=== PATIENT | female | born 1995 | race Caucasian/White ===

== ENCOUNTER 2018-06-06 20:05 | Outpatient (CLI) | payer BC, OTHER ==
[~2018-06-06] VITALS: Ht 175.3 cm; Wt 79.5 kg
--- NOTE | 2018-06-06 20:10 | NUR ---
PT TO UNIT AMBULATORY WITH COMPLAINTS OF CONTRACTIONS. PT TO ROOM, CHANGED INTO GOWN. EFM APPLIED, VS OBTAINED, SVE PERFORMED.
[2018-06-06 20:27] VITALS: BP 118/71; PULSE 125; TEMP 98.4
[2018-06-06] MEDS ORDERED: PRENATAL PO (20:35)
[2018-06-06] MEDS ORDERED: PROBIOTIC FORMU1 CAP PO (20:36)
[2018-06-06] MEDS ORDERED: NATURAL IRON65 MG PO (20:38)
[2018-06-06 20:45] VITALS: BP 118/71; PULSE 125; TEMP 98.4
[2018-06-06 21:15] VITALS: BP 107/62; PULSE 100
[2018-06-06 21:33] VITALS: BP 114/62; PULSE 96
--- NOTE | 2018-06-06 21:33 | NUR ---
PT MAY DC HOME PER DR. SCHREIBER. MONITORING DC'D AT THIS TIME. PT CHANGING INTO STREET [employer]OTHES WHILE DISCHARGE PAPERWORK PREPARED.
== END 2018-06-06 21:50 | disposition home or self-care (01) ==
LOC: LDRO 20:05 → LDR 20:44 → LDRO 21:50
DX: O62.9 Abnormality of forces of labor, unspecified (principal); Z3A.37 37 weeks gestation of pregnancy
CPT/HCPCS: OP

== ENCOUNTER 2018-06-13 17:17 | Outpatient (CLI) | payer BC, OTHER ==
[~2018-06-13] VITALS: Ht 175.3 cm; Wt 79.5 kg
[~2018-06-13 17:17] MED LIST: NATURAL IRON65 MG PO; PRENATAL PO; PROBIOTIC FORMU1 CAP PO
[2018-06-13 17:27] VITALS: BP 116/83; PULSE 66; TEMP 97.7
--- NOTE | 2018-06-13 17:46 | NUR ---
Patient ambulatory to unit accompanied by spouse. Patient states that since around 1100 today she has been having regular painful contractions about every 5 minutes. Patient denies any leaking of fluid or vaginal bleeding and states baby has been active. Patient reports that she is attempting a with this delivery as last was for intolerance but has a successful vaginal delivery with her first delivery. Patient denies any complications with this . Transfer from [facility] around 32 weeks so she can . FHR and contraction monitors placed and explained. VS stable. SVE /-3. Contractions palpate moderate to firm. Will contact Dr. Jones for further orders.
[2018-06-13 19:00] VITALS: BP 115/79; PULSE 54
--- NOTE | 2018-06-13 19:00 | NUR ---
1839- SVE /-3. Unchanged from SVE upon admission. 1844- updated. Ok to discharge home. 1854- Discharge instructions explained to patient and . Encouraged patient to rest and increase fluid intake. Call anytime with questions and concerns. 1904- Patient ambulatory off unit with .
== END 2018-06-13 19:05 | disposition home or self-care (01) ==
LOC: LDRO 17:17
DX: O62.9 Abnormality of forces of labor, unspecified (principal); Z3A.38 38 weeks gestation of pregnancy

== ENCOUNTER 2018-06-17 19:08 | Outpatient (CLI) | payer BC, OTHER ==
[~2018-06-17] VITALS: Ht 175.3 cm; Wt 79.1 kg
--- NOTE | 2018-06-17 19:20 | NUR ---
Pt arrived on the unit ambulatory escorted by and with complaits of contractions "all day", pt denies any leaking of fluid but some "spotting" after appointment with Dr. Jones on 06/16 when membranes were stripped per pt's report. Pt also reports normal movement. EFM and toco monitors placed. Vital signs WNL. SVE 2-3/80/-2. Spoke with Dr. Harding for an update on pt's arrival, FHR tracing and SVE reviewed. Orders for labor assessment received.
[2018-06-17 20:20] VITALS: BP 122/74; PULSE 73; TEMP 97.5
--- NOTE | 2018-06-17 20:40 | NUR ---
Spoke with Dr. Harding for an update on pt's status with repeat SVE and no change 2/-2. Orders for discharge home received. Information reviewed with pt and at the bedside. Both verbalized an agreement and report no questions or concerns at this time.
== END 2018-06-17 21:00 | disposition home or self-care (01) ==
LOC: LDRO 19:08
DX: O62.9 Abnormality of forces of labor, unspecified (principal); Z3A.39 39 weeks gestation of pregnancy

== ENCOUNTER 2018-06-18 00:59 | Inpatient (IN) | payer BC, OTHER ==
[~2018-06-18] VITALS: Ht 175.3 cm; Wt 79.1 kg
[2018-06-18] VITALS (38 sets, daily range): BP systolic 95–138; BP diastolic 7–79; PULSE 55–125; TEMP 97.7–99.1
--- NOTE | 2018-06-18 01:05 | NUR ---
at 39 weeks and 4 days arrives to unit ambulatory with complaint of contractions every 4-5 minutes. Pt was seen a few hours ago and was discharged dilated 2-3. Pt oriented to room, bed in low and locked position, and call light within reach. Pt changed into clean gown. EFM and toco explained and applied. Pt reports good movement and denies LOF. Pt reports not problems this . Has had a VAVD and a C/S for intolerance of labor, pt desires . Plan of care reviewed and patient and spouse. Admission assessment started. SVE /-2
--- NOTE | 2018-06-18 01:14 | NUR ---
0114 - Pt requesting epidural. Milton Isbell CRNA notified 0150 - ANN Penn at bedside. Pt repositioned to sitting on edge of bed. Epidural procedure, risks, and benefits reviewed with patient, pt verbalized understanding. 0159 - Single shot by Carlos Isbell CRNA, pt denies any adverse reactions. 0203 - Pt repositioned in bed to wedge left. Epidural pump set up by ANN Penn.
--- NOTE | 2018-06-18 01:31 | NUR ---
IV started in right forearm with 1 attempt. Labs obtained off of IV start. Lactated ringers bolus infusing to gravity.
[2018-06-18 01:48] LABS: BASO % 0.1 % (0.0-2.0); EOS # 0.1 (0.0-0.7); EOS % 0.4 % (0-4.0); GRAN # 11.2 (1.4-6.5); GRAN % 77.8 % (42.2-75.2); HEMATOCRIT 37.3 % (37.0-47.0); HEMOGLOBIN 12.1 g/dl (12.5-16.0); LYMPH # 2.2 (1.2-3.4); LYMPH % 15.4 % (20.0-51.0); MEAN CELL VOLUME 88 fl (80.0-100.0); MEAN CORPUSCULAR HEMOGLOBIN 28 pg (27.0-31.0); MEAN CORPUSCULAR HGB CONC 32 g/dl (33.0-37.0); MEAN PLATELET VOLUME 11.5 fl (7.4-10.4); MONO # 0.8 (0.1-0.6); MONO % 5.5 % (1.7-9.3); PLATELET COUNT 251 K/mm3 (130-400); RED BLOOD COUNT 4.26 M/mm3 (4.10-5.30); REDCELL DISTRIBUTION WIDTH-CV 13.5 % (11.5-14.5)
--- NOTE | 2018-06-18 08:15 | NUR ---
0800- SVE by Dr Jones, complete/+3. Room and Pt prepared for delivery. Rony, nursery RN called to bedside. 08- Pt begins pushing with UCs. 0815- of viable female infant. Infant dried and stimulated by . Placed on mother's abd, tended to by nursery RN. Cord clamped and cut. Cord blood obtained and collected. 817- Spontaneous delivery of placenta, Pitocin started at 333ml/hr. Fundus massaged to firm by . Repair completed. Pericare completed. Ice pack and clean chux under Pt. Pt tolerated well, resting comfortably with skin-2-skin.
--- NOTE | 2018-06-18 11:00 | NUR ---
1100- Pt ambulates to bathroom independently with RN by side. Voids without difficulty. Pericare completed and explained. Peripad and underwear on. Clean gown on. Pt ambulates to PP room independently with RN and family. Oriented to room. Education packet given. Call light within reach.
[2018-06-19 07:40] VITALS: BP 111/73; PULSE 69; TEMP 97.5
[2018-06-19] MEDS ORDERED: PERCOCET 325 MG1 TA2 PO (08:39)
[2018-06-19] MEDS ORDERED: MOTRIN 800800 MG/TAB PO (08:39)
--- NOTE | 2018-06-19 09:13 | NUR ---
Initial visit; Parents thanked [employer] for offering congratulations and God's blessings for the of their daughter. night assistant thanked them for choosing [facility].
== END 2018-06-19 14:25 | disposition home or self-care (01) | DRG 807 ==
LOC: LDRO 00:59 → OB 01:19 → LDR 01:19 → OB 11:15
PROVIDERS: Obstetrics & Gynecology; ADMIT Obstetrics & Gynecology
PROC: 10E0XZZ Delivery of Products of Conception, External Approach (ICD-10-PCS; principal; 2018-06-18)
PROC: 0W8NXZZ Division of Female Perineum, External Approach (ICD-10-PCS; 2018-06-18)
DX: O34.211 Maternal care for low transverse scar from previous cesarean delivery (principal); Z37.0 Single live birth; N85.8 Other specified noninflammatory disorders of uterus; Z3A.39 39 weeks gestation of pregnancy; O69.2XX0 Labor and delivery complicated by other cord entanglement, with compression, not applicable or unspecified; O99.02 Anemia complicating childbirth; Z88.0 Allergy status to penicillin
CPT/HCPCS: J2590; J2795; J7120

== ENCOUNTER 2020-09-10 23:38 | Outpatient (CLI) | payer BC, OTHER ==
[~2020-09-10] VITALS: Ht 170.2 cm; Wt 90.0 kg
[~2020-09-10 23:38] MED LIST changes: +MOTRIN 800800 MG/TAB PO; +PERCOCET 325 MG1 TA2 PO
--- NOTE | 2020-09-10 23:45 | NUR ---
2345- PATIENT AMBULATORY TO OUR UNIT WITH SPOUSE BY HER SIDE. PATIENT REPORTS "LEAKING" A LITTLE BIT OF FLUID THAT SHE FIRST NOTICED AROUND 2030 TONIGHT. PATIENT REPORTS GMF, NO BLEEDING, IRREGULAR CONTRACTIONS. PATIENT IS A AT 39.0 AT 0000. 2350- EFM AND TOCO ON AND TRACING. VITALS TAKEN, ASSESSMENT COMPLETED. SVE REVEALS UNCHANGED FROM THE OFFICE AT 250/-3 WITH NO APPARENTLY OBVIOUS MEBRANES LEAKING. AMNIOTRACE TEST NEGATIVE AND NO FLUID RETURNED IN GLOVE. DISCUSSED PLAN OF CARE. CALLIGHT WITHIN REACH.
[2020-09-11] MEDS ORDERED: B COMPLEX & B121 TAB (00:20)
[2020-09-11 01:10] VITALS: BP 119/82; PULSE 75; TEMP 98.3
--- NOTE | 2020-09-11 01:25 | NUR ---
0125- PATIENT AND SPOUSED WALKED OFF UNIT BY THIS RN. DISCHARGE PAPERWORK HAD BEEN DISCUSSED AND PATIENT VERBALIZED UNDERSTANDING WITH NO FURTHER QUESTIONS AND SIGNED DISCHARGE PAPERWORK.
== END 2020-09-11 01:25 | disposition home or self-care (01) ==
LOC: LDRO 23:38
DX: O42.92 Full-term premature rupture of membranes, unspecified as to length of time between rupture and onset of labor (principal); Z3A.39 39 weeks gestation of pregnancy

== ENCOUNTER 2020-09-18 06:42 | Inpatient (IN) | payer BC, OTHER ==
[~2020-09-18] VITALS: Ht 172.7 cm; Wt 90.5 kg
[2020-09-18] VITALS (43 sets, daily range): BP systolic 72–136; BP diastolic 45–96; PULSE 51–126; TEMP 98–98.7
[~2020-09-18 06:42] MED LIST changes: +B COMPLEX & B121 TAB
[2020-09-18 11:09] LABS: BASO % 0.3 % (0.0-2.0); EOS # 0.1 (0.0-0.7); EOS % 0.4 % (0-4.0); GRAN # 8.4 (1.4-6.5); GRAN % 71.9 % (42.2-75.2); HEMATOCRIT 37.8 % (37.0-47.0); HEMOGLOBIN 12.3 g/dl (12.5-16.0); LYMPH # 2.5 (1.2-3.4); LYMPH % 21.3 % (20.0-51.0); MEAN CELL VOLUME 88 fl (80.0-100.0); MEAN CORPUSCULAR HEMOGLOBIN 29 pg (27.0-31.0); MEAN CORPUSCULAR HGB CONC 33 g/dl (33.0-37.0); MEAN PLATELET VOLUME 12.2 fl (7.4-10.4); MONO # 0.7 (0.1-0.6); MONO % 5.5 % (1.7-9.3); PLATELET COUNT 211 K/mm3 (130-400); RED BLOOD COUNT 4.32 M/mm3 (4.10-5.30); REDCELL DISTRIBUTION WIDTH-CV 13.7 % (11.5-14.5)
[2020-09-19 00:45] VITALS: BP 108/63; PULSE 84; TEMP 98.3
[2020-09-19 04:20] VITALS: BP 111/58; PULSE 75; TEMP 97.8
[2020-09-19 07:00] VITALS: BP 93/56; PULSE 79; TEMP 97.9
[2020-09-19] MEDS ORDERED: MOTRIN 800800 MG/TAB PO (07:32)
[2020-09-19] MEDS ORDERED: PERCOCET 325 MG1 TA2 PO (07:33)
[2020-09-19 12:40] VITALS: BP 109/64; PULSE 64; TEMP 98.3
[2020-09-19 15:41] VITALS: BP 124/73; PULSE 89; TEMP 97.9
[2020-09-19 22:00] VITALS: BP 117/62; PULSE 88; TEMP 98.8
[2020-09-20 08:36] VITALS: BP 126/69; PULSE 87; TEMP 97.9
== END 2020-09-20 12:10 | disposition home or self-care (01) | DRG 807 ==
LOC: LDRO → LDR 06:43 → LDRO 10:25 → OB 10:26 → LDR 10:26 → OB 23:13
PROVIDERS: ADMIT Obstetrics & Gynecology
PROC: 10E0XZZ Delivery of Products of Conception, External Approach (ICD-10-PCS; principal; 2020-09-18)
PROC: 0KQM0ZZ Repair Perineum Muscle, Open Approach (ICD-10-PCS; 2020-09-18)
DX: O48.0 Post-term pregnancy (principal); Z37.0 Single live birth; Z3A.40 40 weeks gestation of pregnancy; O34.211 Maternal care for low transverse scar from previous cesarean delivery
CPT/HCPCS: J2590; J7120

== ENCOUNTER 2021-11-30 09:45 | Inpatient (IN) | payer OTHER ==
[~2021-11-30] VITALS: Ht 170.2 cm; Wt 87.3 kg
[2021-12-01] VITALS (30 sets, daily range): BP systolic 101–158; BP diastolic 52–85; PULSE 64–123; TEMP 97.2–98.5
[2021-12-01 09:39] LABS: BASO % 0.4 % (0.0-2.0); EOS # 0.1 K/mm3 (0.0-0.7); EOS % 0.5 % (0.0-4.0); GRAN # 7.7 K/mm3 (1.4-6.5); GRAN % 68.7 % (42.2-75.2); LYMPH # 2.6 K/mm3 (1.2-3.4); LYMPH % 23.3 % (20.0-51.0); MEAN CELL VOLUME 87 fl (80.0-100.0); MEAN CORPUSCULAR HEMOGLOBIN 28 pg (27-31); MEAN CORPUSCULAR HGB CONC 32 g/dl (33.0-37.0); MEAN PLATELET VOLUME 11.8 fl (7.4-10.4); MONO # 0.7 K/mm3 (0.1-0.6); MONO % 6.5 % (1.7-9.3); PLATELET COUNT 204 K/mm3 (130-400); RED BLOOD COUNT 3.96 M/mm3 (4.10-5.30); REDCELL DISTRIBUTION WIDTH-CV 14.2 % (11.5-14.5)
[2021-12-01 09:40] LABS: HEMATOCRIT 34.4 % (37.0-47.0)
[2021-12-02] MEDS ORDERED: MOTRIN 800800 MG/TAB PO (08:54)
[2021-12-02 09:55] VITALS: BP 105/64; PULSE 72; TEMP 97.3
[2021-12-02 16:29] VITALS: BP 108/70; PULSE 79; TEMP 98.5
[2021-12-02 19:15] VITALS: BP 118/82; PULSE 71; TEMP 97.8
--- NOTE | 2021-12-02 20:30 | NUR ---
DISCHARGE INSTRUCTIONS REVIEWED WITH PT, UNDERSTANING VERBALIZED. PT DENIES NEED FOR PAIN MEDICATIONS PRIOR TO DISCHARGE. REQUESTS TO NURSE BABY PRIOR TO DISCHARGE.
--- NOTE | 2021-12-02 21:00 | NUR ---
PT ESCORTED OFF UNIT AMBULATORY BY THIS NURSE WITH SPOUSE AND BABY.
== END 2021-12-02 21:00 | disposition home or self-care (01) | DRG 807 ==
LOC: LDR 12-01 08:20 → OB 12-01 09:45
PROVIDERS: ADMIT Obstetrics & Gynecology
PROC: 10E0XZZ Delivery of Products of Conception, External Approach (ICD-10-PCS; principal; 2021-12-01)
PROC: 0KQM0ZZ Repair Perineum Muscle, Open Approach (ICD-10-PCS; 2021-12-01)
PROC: 10907ZC Drainage of Amniotic Fluid, Therapeutic from Products of Conception, Via Natural or Artificial Opening (ICD-10-PCS; 2021-12-01)
PROC: 3E033VJ Introduction of Other Hormone into Peripheral Vein, Percutaneous Approach (ICD-10-PCS; 2021-12-01)
DX: O48.0 Post-term pregnancy (principal); Z37.0 Single live birth; Z3A.40 40 weeks gestation of pregnancy; O69.81X0 Labor and delivery complicated by cord around neck, without compression, not applicable or unspecified; O70.1 Second degree perineal laceration during delivery
CPT/HCPCS: J2590; J7120

== ENCOUNTER 2022-05-30 03:51 | Emergency (ER) | payer OTHER ==
[~2022-05-30] VITALS: Ht 172.7 cm; Wt 75.0 kg
[2022-05-30 04:02] VITALS: TEMP 97.6
[2022-05-30 04:38] LABS: BASO % 0.3 % (0.0-2.0); EOS # 0.1 K/mm3 (0.0-0.7); EOS % 1.3 % (0.0-4.0); GRAN # 2.9 K/mm3 (1.4-6.5); GRAN % 48.1 % (42.2-75.2); HEMATOCRIT 45.9 % (37.0-47.0); LYMPH # 2.3 K/mm3 (1.2-3.4); LYMPH % 37.6 % (20.0-51.0); MEAN CELL VOLUME 90 fl (80.0-100.0); MEAN CORPUSCULAR HEMOGLOBIN 29 pg (27-31); MEAN CORPUSCULAR HGB CONC 33 g/dl (33.0-37.0); MEAN PLATELET VOLUME 10.3 fl (7.4-10.4); MONO # 0.7 K/mm3 (0.1-0.6); MONO % 12.4 % (1.7-9.3); PLATELET COUNT 229 K/mm3 (130-400); RED BLOOD COUNT 5.12 M/mm3 (4.10-5.30); REDCELL DISTRIBUTION WIDTH-CV 12.4 % (11.5-14.5)
[2022-05-30 05:12] LABS: ALBUMIN 4.9 gm/dL (3.5-5.0); BILIRUBIN,TOTAL 0.6 mg/dL (0.2-1.2); C-REACTIVE PROTEIN 5.83 mg/dL (0.00-0.50); CALCIUM 10.3 mg/dL (8.4-10.2); CREATININE, serum 0.8 mg/dL (0.57-1.11); POTASSIUM 3.4 mmol/L (3.5-4.5)
[2022-05-30 06:32] VITALS: BP 115/75; PULSE 77
== END 2022-05-30 06:34 | disposition home or self-care (01) ==
LOC: COL.ER 03:51
PROVIDERS: Emergency Medicine
DX: R19.7 Diarrhea, unspecified (principal); R10.84 Generalized abdominal pain; R79.82 Elevated C-reactive protein (CRP); Z86.718 Personal history of other venous thrombosis and embolism; Z79.01 Long term (current) use of anticoagulants; Z28.310 Unvaccinated for COVID-19
CPT/HCPCS: J7030